=== PATIENT | male | born 2005 | race Two or more races ===

== ENCOUNTER 2023-03-12 21:03 | Emergency (ER) | payer MEDICAID ==
[~2023-03-12] VITALS: Ht 167.6 cm; Wt 87.4 kg
[2023-03-13] MEDS ORDERED: AMOX875T4 PO (02:29)
[2023-03-13] MEDS ORDERED: IBUP-1456 PO (02:29)
[2023-03-13 03:05] VITALS: BP 113/75
== END 2023-03-13 03:05 | disposition home or self-care (01) ==
LOC: ER 21:03
DX: S81.812A Laceration without foreign body, left lower leg, initial encounter (principal); S81.852A Open bite, left lower leg, initial encounter; Z88.1 Allergy status to other antibiotic agents; Z88.6 Allergy status to analgesic agent; W54.0XXA Bitten by dog, initial encounter; Y93.89 Activity, other specified; Y92.89 Other specified places as the place of occurrence of the external cause; Y99.8 Other external cause status
CPT/HCPCS: 12001

== ENCOUNTER 2023-03-27 08:51 | Emergency (ER) | payer MEDICAID ==
[~2023-03-27] VITALS: Ht 172.7 cm; Wt 87.2 kg
[~2023-03-27 08:51] MED LIST: AMOX875T4 PO; IBUP-1456 PO
[2023-03-27] MEDS ORDERED: AUG875T PO (09:52)
[2023-03-27] MEDS ORDERED: IBUP-1454 PO (09:52)
[2023-03-27] MEDS ORDERED: ACETAMINOPHEN 500 MG TAB PO ONE (10:00)
[2023-03-27] MEDS ORDERED: CHLORHEXIDINE 4% TOPICAL soln 118ml TOP ONE (10:00)
[2023-03-27 10:19] VITALS: BP 116/80; PULSE 80; RESP 18; O2SAT 97
== END 2023-03-27 10:20 | disposition home or self-care (01) ==
LOC: ER 08:51
DX: S81.852A Open bite, left lower leg, initial encounter (principal); Z79.899 Other long term (current) drug therapy; W54.0XXA Bitten by dog, initial encounter; Y93.89 Activity, other specified; Y92.89 Other specified places as the place of occurrence of the external cause; Y99.8 Other external cause status